=== PATIENT | female | born 1995 | race Caucasian/White ===

== ENCOUNTER 2021-04-23 10:34 | Emergency (ER) | payer MEDICAID ==
[~2021-04-23] VITALS: Ht 170.2 cm; Wt 63.5 kg
--- NOTE | 2021-04-23 10:45 | NUR ---
To er bed 7, c/o throat pain x 5 days, "having a hard time speaking", aaox4, breathing even and non labored.
[2021-04-23] MEDS ORDERED: methylPREDNISolone SOD SUCC 125 MG/2ML VIAL IV ONE (11:00)
[2021-04-23] MEDS ORDERED: KETOROLAC TROMETHAMINE INJ 30 MG/ML VIAL IV ONE (11:00)
[2021-04-23] MEDS ORDERED: methylPREDNISolone SOD SUCC 125 MG/2ML VIAL ONE (11:12)
[2021-04-23 11:15] LABS: NEUTROPHILS # (AUTO) 13.4 K/uL (1.8-8.9)
--- NOTE | 2021-04-23 11:16 | NUR ---
urine collected and sent to lab.
[2021-04-23 11:17] LABS: CREATININE 0.9 mg/dL (0.6-1.3)
[2021-04-23 11:19] LABS: BASOPHILS % (AUTO) 0.2 % (0.0-2.0); EOSINOPHILS % (AUTO) 0.1 % (0.0-6.0); HEMATOCRIT 42 % (33-45); LYMPHOCYTES % (AUTO) 6.4 % (20.0-44.0); MEAN CORPUSCULAR HGB CONC 33 g/dl (31.0-36.0); MEAN CORPUSCULAR VOLUME 92 fL (82-100); MONOCYTES # (AUTO) 1.4 K/uL (0.1-1.30); MONOCYTES % (AUTO) 8.8 % (2.0-12.0); NEUTROPHILS % (AUTO) 84.5 % (43.0-81.0); PLATELET COUNT (AUTO) 175 K/uL (150-450); RED BLOOD CELL COUNT(AUTO) 4.58 MIL/uL (4.0-5.2); WHITE BLOOD COUNT (AUTO) 15.8 K/uL (4.3-11.0)
[2021-04-23] MEDS ORDERED: KETOROLAC TROMETHAMINE 15 MG/ML VIAL ONE ×2 (11:38→19:37)
[2021-04-23] MEDS ORDERED: CT SWABBABLE VALVE TRANS SET 1 EA INFUS.SET MC ONE (11:43)
[2021-04-23] MEDS ORDERED: IOHEXOL-300 100 ML VIAL IV ONE (11:43)
[2021-04-23] MEDS ORDERED: IV NS 0.9% 250 ML IV ONE (11:43)
--- NOTE | 2021-04-23 12:26 | NUR ---
CALL DR Watson, [facility] [phone] NOT AVAILABLE AT THIS TIME.
--- NOTE | 2021-04-23 12:27 | NUR ---
CALLED [facility] FOR READ.
[2021-04-23] MEDS ORDERED: PIPERACILLIN /TAZOBACTAM 3.375 G in IV D5W 50 ML IV ONE (12:30)
--- NOTE | 2021-04-23 12:44 | NUR ---
covid swab done and sent to lab
--- NOTE | 2021-04-23 12:51 | NUR ---
CALLED [facility] [phone] SPOKE WITH [facility] [phone]
--- NOTE | 2021-04-23 13:05 | NUR ---
CALLED [facility] [phone] SANDERS
--- NOTE | 2021-04-23 13:16 | NUR ---
FA[place]ED CL[place]IC[place] [facility] [phone]
--- NOTE | 2021-04-23 13:36 | NUR ---
CALLED [facility] [phone] SPOKE WITH [facility] TO [phone]
--- NOTE | 2021-04-23 13:51 | NUR ---
CALLED [facility] [phone] [facility] [phone]
--- NOTE | 2021-04-23 14:00 | NUR ---
[facility] NO ICU BEDS AT THIS TIME.
--- NOTE | 2021-04-23 14:21 | NUR ---
CALLED [facility] [phone] LEFT
--- NOTE | 2021-04-23 14:23 | NUR ---
[facility] CALLED NO BEDS
--- NOTE | 2021-04-23 14:24 | NUR ---
[facility] NO BEDS AVAILABLE
--- NOTE | 2021-04-23 14:41 | NUR ---
CALLED [facility] SPOKE WITH CHLOE. [phone] FAXED CLINICALS TO [phone]
--- NOTE | 2021-04-23 15:02 | NUR ---
[facility] CALLED ASKING FOR CLINICALS SPOKE WITH DANIEL
--- NOTE | 2021-04-23 15:05 | NUR ---
COVID RESULT NEGATIVE (-)
[2021-04-23 15:35] LABS: C-REACTIVE PROTEIN 30.7 mg/dL (0.0-0.9)
--- NOTE | 2021-04-23 15:50 | NUR ---
[facility] CALLED DECLINING PT DUE TO BED CAPACITY
--- NOTE | 2021-04-23 17:20 | NUR ---
REFAXED CLINICALS TO [facility].
--- NOTE | 2021-04-23 17:36 | NUR ---
CALLED [facility] TO CONFIRM THEY HAVE UPDATED CLINICALS. [phone]
--- NOTE | 2021-04-23 19:35 | NUR ---
verbal order 15mg toradol ivp
--- NOTE | 2021-04-23 19:40 | NUR ---
Patient does not wish to proceed with medical care recommended by Dr. Mullins. Patient given information related to possible complications, up to and including , which could occur as a result of leaving the hospital at this time. Patient verbalizes understanding of risks involved due to leaving against medical advice. Patient has signed AMA form.
--- NOTE | 2021-04-23 19:41 | NUR ---
IV removed. Catheter intact and site benign. Pressure and 4x4 applied to site. No bleeding noted. Pt ambulatory with a steady gait.
[2021-04-23 20:30] VITALS: BP 118/72
== END 2021-04-23 19:41 | disposition left against medical advice (07) ==
LOC: ER 10:39
DX: J36 Peritonsillar abscess (principal); J98.8 Other specified respiratory disorders; R59.9 Enlarged lymph nodes, unspecified; Z20.822 Contact with and (suspected) exposure to COVID-19; Z53.29 Procedure and treatment not carried out because of patient's decision for other reasons
CPT/HCPCS: 36415; 70491; 80048; 84703; 85025; 85652; 86140; 87426; 96365; 96375; 96376; 99291; C9803; J1885 ×2; J2543; J2930; J7050; J7060; Q9967